=== PATIENT | female | born 1970 | race Caucasian/White ===

== ENCOUNTER 2019-09-14 11:16 | Emergency (ER) | payer OTHER ==
[~2019-09-14] VITALS: Ht 160 cm; Wt 90.7 kg
[~2019-09-14 11:16] MED LIST: BUPR75; Esgic Tablet1 EACH PO; Lisinopril2.5 MG
[2019-09-14] MEDS ORDERED: Venlafaxine HC225 MG PO (11:51)
[2019-09-14] MEDS ORDERED: CETI5 PO (11:51)
== END 2019-09-14 13:23 | disposition home or self-care (01) ==
LOC: ER 11:16
DX: R51 Headache (principal); Z88.8 Allergy status to other drugs, medicaments and biological substances; Z79.899 Other long term (current) drug therapy; F32.9 Major depressive disorder, single episode, unspecified; I10 Essential (primary) hypertension
CPT/HCPCS: 96372; 99283-25; J1885

== ENCOUNTER 2020-08-18 08:14 | Day surgery (SDC) | payer OTHER ==
[2020-08-16 17:46] LABS: BASOPHILS PERCENT AUTO 1 % (0-2); EOSINOPHILS ABSOLUTE AUTO 0.34 K/mm3 (0.00-0.68); EOSINOPHILS PERCENT AUTO 4 % (0-6); Hematocrit 43.1 % (33.0-51.0); Hemoglobin 14.4 g/dL (11.5-16.0); IMMATURE GRAN ABSOLUTE AUTO 0.02 K/mm3 (0.00-0.10); IMMATURE GRAN PERCENT AUTO 0 % (0-1); LYMPHOCYTES ABSOLUTE AUTO 3.27 K/mm3 (0.84-5.20); LYMPHOCYTES PERCENT AUTO 42 % (21-46); MONOCYTES ABSOLUTE AUTO 0.62 K/mm3 (0.16-1.47); MONOCYTES PERCENT AUTO 8 % (4-13); Mean Corpuscular HGB 30.4 pg (26.0-34.0); Mean Corpuscular HGB Conc 33.4 g/dL (31.5-36.5); Mean Corpuscular Volume 91 fL (80-100); Mean Platelet Volume 10.2 fL (9.1-12.4); NEUTROPHILS ABSOLUTE AUTO 3.38 K/mm3 (1.96-9.15); NEUTROPHILS PERCENT AUTO 44 % (41-73); Platelet Count 280 K/mm3 (150-400); RDW Coefficient Variation 12.5 % (11.7-14.2); RDW Standard Deviation 41.4 fL (35.1-46.3); Red Blood Cell Count 4.74 M/mm3 (3.80-5.20); White Blood Cell Count 7.73 K/mm3 (4.00-11.30)
[2020-08-16 18:53] LABS: Anion Gap 10 mmol/L (6-16); Beta HCG, Quantitative, Serum <1 mIU/mL (0-3); Blood Urea Nitrogen 16 mg/dL (8-24); Bun/Creatinine Ratio 22.4 (12.0-20.0); CO2, Blood 23 mmol/L (21-32); Chloride, Blood 109 mmol/L (98-108); Creatinine, Blood 0.72 mg/dL (0.40-1.00); Glomerular Filtration Rate >60 (60-); Glucose, Blood 78 mg/dL (70-99); Potassium, Blood 4.2 mmol/L (3.5-5.5); Sodium, Blood 142 mmol/L (136-145)
[~2020-08-18] VITALS: Ht 165.1 cm; Wt 90.7 kg
[~2020-08-18 08:14] MED LIST changes: -BUPR75; +BUPR75 PO; +CETI5 PO; +INDO50 PO; -Lisinopril2.5 MG; +Lisinopril2.5 MG PO; +PSEU120ER PO; +SERT100 PO; +Venlafaxine HC225 MG PO
[2020-08-18] MEDS ORDERED: VENL75ER PO (08:53)
[2020-08-18] MEDS ORDERED: ZYRTEC10 M2 PO (08:54)
[2020-08-18] MEDS ORDERED: FLUT.05NI (08:54)
--- NOTE | 2020-08-18 11:01 | NUR ---
08/18/[address] IN TO ROOM TO CONSULT DURING PROCEDURE, PER DR ROMA COLON
--- NOTE | 2020-08-18 13:45 | NUR ---
pt transferred to room via own bed, a/o x 4, sleepy, husbandwith pt. post op vs commenced and stable. pt denies nausea, no vomiting. pt rates pain at 10, proved analgesia per mar. SCDs in place, k-pad provided
--- NOTE | 2020-08-18 18:19 | NUR ---
post op vs complete and stable. pt tolerating PO intake with no n/v and regular diet. pt ambulated to bathroom and back. changes on peripad with small amount red blood. yost catheter patent/draining clear yellow urine. pt rate pain at 3/10 following analgesia.
[2020-08-19 04:25] LABS: BASOPHILS ABSOLUTE AUTO 0.02 K/mm3 (0.00-0.23); BASOPHILS PERCENT AUTO 0 % (0-2); EOSINOPHILS PERCENT AUTO 0 % (0-6); Hemoglobin 12.2 g/dL (11.5-16.0); IMMATURE GRAN ABSOLUTE AUTO 0.05 K/mm3 (0.00-0.10); IMMATURE GRAN PERCENT AUTO 0 % (0-1); LYMPHOCYTES ABSOLUTE AUTO 1.64 K/mm3 (0.84-5.20); LYMPHOCYTES PERCENT AUTO 13 % (21-46); MONOCYTES ABSOLUTE AUTO 0.99 K/mm3 (0.16-1.47); MONOCYTES PERCENT AUTO 8 % (4-13); Mean Corpuscular HGB 30.6 pg (26.0-34.0); Mean Corpuscular HGB Conc 33.9 g/dL (31.5-36.5); Mean Corpuscular Volume 90 fL (80-100); Mean Platelet Volume 9.2 fL (9.1-12.4); NEUTROPHILS ABSOLUTE AUTO 10.47 K/mm3 (1.96-9.15); NEUTROPHILS PERCENT AUTO 79 % (41-73); Platelet Count 250 K/mm3 (150-400); RDW Coefficient Variation 12.3 % (11.7-14.2); RDW Standard Deviation 41.1 fL (35.1-46.3); Red Blood Cell Count 3.99 M/mm3 (3.80-5.20); White Blood Cell Count 13.17 K/mm3 (4.00-11.30)
--- NOTE | 2020-08-19 06:43 | NUR ---
PATIENT WAS ABLE TO SLEEP WELL T/O NIGHT. HER PAIN WAS CONTROLLED WITH PO PAIN MEDICATION AND SHE WAS ABLE TO SLEEP. HER CATHETER WAS REMOVED WITHOUT ISSUE, PATIENT UP IN ROOM AND HAS NOW GONE FOR A WALK IN THE HALLWAYS WITH HOUSEKEEPING ASSISTANT. CALL LIGHT IN REACH.
--- NOTE | 2020-08-19 10:59 | NUR ---
PT AMBULATING INDEPENDENTLY IN ROOM, TOLORATED BREAKFAST WELL. VOIDED 500CC POST KERN REMOVAL. PT TOLRATED SHOWER WELL AND REMOVED GUAZE DRESSING, STERI STRIPS INTACT WITH RED DRAINAGE. PT RESTING WELL IN ROOM AND CALL LIGHT IN REACH.
[2020-08-19] MEDS ORDERED: DOCU100 PO (13:34)
[2020-08-19] MEDS ORDERED: ESTRADIOL2 MG PO (13:35)
[2020-08-19] MEDS ORDERED: DULCOLAX400 MG/5 M PO (13:35)
[2020-08-19] MEDS ORDERED: PROM25 PO (13:38)
[2020-08-19] MEDS ORDERED: Percocet 5-3251 EACH PO (13:38)
[2020-08-19] MEDS ORDERED: SENN187 PO (13:41)
[2020-08-19] MEDS ORDERED: SIME80CH PO (13:42)
--- NOTE | 2020-08-19 14:48 | NUR ---
DISCHARGE SUMMARY PT A&O, SL D/C, REVIEWED D/C INSTRUCTIONS WITH PT AND LIFTING RESTRICTIONS. PT HAS FOLLOW UP APPOINTMENT WITH DR. BRANDON ON THE OF THIS MONTH. PT HAS PERSCRIPTIONS AND CAN FILL AT PERFERRED PHARMACY. PT ESCORTED OUT IN W/C BY SINTER PRESS OPERATOR. SO DRIVING PT HOME.
== END 2020-08-19 14:31 | disposition home or self-care (01) ==
LOC: ORSCMMR 08:14 → ORD 09:45 → ORSCMMR 09:45 → ORD 12:15 → SURS 13:42 → ORSCMMR 08-19 14:31 → SURS 08-19 14:31
PROVIDERS: Obstetrics & Gynecology
PROC: 0UT74ZZ Resection of Bilateral Fallopian Tubes, Percutaneous Endoscopic Approach (ICD-10-PCS; principal; 2020-08-18 09:45)
PROC: 8E0W4CZ Robotic Assisted Procedure of Trunk Region, Percutaneous Endoscopic Approach (ICD-10-PCS; principal; 2020-08-18 09:45)
PROC: 0UT24ZZ Resection of Bilateral Ovaries, Percutaneous Endoscopic Approach (ICD-10-PCS; principal; 2020-08-18 09:45)
PROC: 0UT94ZZ Resection of Uterus, Percutaneous Endoscopic Approach (ICD-10-PCS; principal; 2020-08-18 09:45)
DX: N95.0 Postmenopausal bleeding (principal); D25.0 Submucous leiomyoma of uterus; N80.3 Endometriosis of pelvic peritoneum; Z23 Encounter for immunization; K66.0 Peritoneal adhesions (postprocedural) (postinfection); I10 Essential (primary) hypertension; F17.210 Nicotine dependence, cigarettes, uncomplicated; F32.9 Major depressive disorder, single episode, unspecified; Z79.899 Other long term (current) drug therapy; E66.9 Obesity, unspecified; Z68.33 Body mass index [BMI] 33.0-33.9, adult
CPT/HCPCS: 58571; S2900; 36415; 80048; 84702; 85025; 86850; 86900; 86901; 88307; A9270; J0690; J1100; J1885; J2250; J2370; J2405; J2704; J3010; J7120; Q2038